=== PATIENT | male | born 1955 | race Caucasian/White ===

== ENCOUNTER 2017-02-12 16:18 | Observation (INO) | payer OTHER ==
--- NOTE | 2017-02-12 18:09 | PCM.HP ---
H&P History of Present Illness - General Date of Service: 02/12/17 Admit Problem/Dx: Admission Diagnosis/Problem Admission Diagnosis/Problem Elevated troponin I level Source of Information: Patient, Family, Old Records, Provider History Limitations: Reports: No Limitations - History of Present Illness Initial Comments - Free Text/Narative: This is a 61yo M who presents to the clinic with sob, chest palpitations profuse diaphoresis that started yesterday am around 1030am while working. He rested and the symptoms lasted for about 45minutes. He has not had symptoms since yesterday but does recall having some chest pain after the palpitations started. He denies any current chest pain or sob. He saw Juan Manuel Kern in clinic and was signed out to me when Juan Manuel left at 5pm. Onset of Symptoms: Reports: Sudden Duration of Symptoms: Reports: Minutes:, Resolved Prior to Arrival Location: Reports: Chest Severity: Moderate Associated Symptoms: Reports: Shortness of Breath, Other (diaphoresis) - Related Data Allergies/Adverse Reactions: Allergies Allergy/AdvReac Type Severity Reaction Status Date / Time No Known Allergies Allergy Verified 02/12/17 18:40 Home Medications: Home Meds Fish Oil/[place]-3 Fatty Acids [Fish Oil] 1 gm PO DAILY 02/12/17 [History] H&P Review of Systems - Review of Systems: Review Of Systems: ROS reveals no pertinent complaints other than HPI. Exam - Exam Exam: See Below - Exam General: Alert, Oriented, Cooperative HEENT: PERRLA, Conjunctiva Clear, EACs Clear, EOMI, Posterior Pharynx Clear Neck: Supple, Trachea Midline Lungs: Clear to Auscultation, Normal Respiratory Effort Cardiovascular: Regular Rate, Regular Rhythm GI/Abdominal Exam: Normal Bowel Sounds Back Exam: Normal Inspection Extremities: Normal Inspection Peripheral Pulses: 2+: Dorsalis Pedis (L), Dorsalis Pedis (R) Skin: Warm, Dry, Intact Neurological: Cranial Nerves Intact Neuro Extensive - Mental Status: Alert, Oriented x3, Normal Mood/Affect - Patient Data Lab Results Last 24 hrs: Laboratory Results - last 24 hr 02/12/17 02/12/17 Range/Units 16:34 16:34 WBC 8.3 (4.0-11.0) K/uL RBC 5.11 (4.50-6.50) M/uL Hgb 14.5 (13.0-18.0) g/dL Hct 44.6 (40.0-54.0) % MCV 87 (76-96) fL MCH 28.4 (27.0-32.0) pg MCHC 32.5 (31.0-35.0) g/dL RDW 14.7 (11.0-16.0) % Plt Count 306 (150-400) K/uL MPV 9.0 (6.0-10.0) fL Neut % (Auto) 56.5 (45.0-70.0) % Lymph % (Auto) 29.3 (20.0-40.0) % [place] % (Auto) 11.6 H (3.0-10.0) % Eos % (Auto) 2.1 (1.0-5.0) % Baso % (Auto) 0.5 (0.0-0.5) % Neut # (Auto) 4.69 (2.00-7.50) K/uL Lymph # (Auto) 2.43 (1.50-4.00) K/uL [place] # (Auto) 0.96 H (0.20-0.80) K/uL Eos # (Auto) 0.17 (0.04-0.40) K/uL Baso # (Auto) 0.04 (0.02-0.10) K/uL Sodium 140 (136-145) mmol/L Potassium 4.1 (3.5-5.1) mmol/L Chloride 102 (98-107) mmol/L Carbon Dioxide 31.9 (21.0-32.0) mmol/L Anion Gap 10.2 (5.0-15.0) mmol/L BUN 11 (8-26) mg/dL Creatinine 1.23 (0.70-1.30) mg/dL Est Cr Clr Drug Dosing TNP Estimated GFR (MDRD) > 60 (>60) MLS/MIN BUN/Creatinine Ratio 8.9 (6-25) Glucose 116 H (74-100) mg/dL Calcium 8.9 (8.5-10.1) mg/dL Total Bilirubin 0.4 (0.0-1.0) mg/dL AST 34 (15-37) U/L ALT 82 H (12-78) U/L Alkaline Phosphatase 74 (46-116) U/L Troponin I 0.064 H* (0.000-0.060) ng/mL Total Protein 7.7 (6.4-8.2) g/dL Albumin 3.7 (3.4-5.0) g/dL Globulin 4.0 (2.2-4.2) g/dL Albumin/Globulin Ratio 0.9 (0.8-2.0) Result Diagrams: 02/12/17 16:34 02/12/17 16:34 *Q Meaningful Use (ADM) - VTE *Q VTE Criteria *Q: - Stroke *Q Stroke Criteria *Q: - AMI *Q AMI Criteria *Q: - Problem List (1) Elevated troponin SNOMED Code(s): 823317966, 519513221 ICD Code: R74.8 - ABNORMAL LEVELS OF OTHER SERUM ENZYMES Status: Acute Priority: High Current Visit: Yes Problem List Initiated/Reviewed/Updated: Yes Orders Last 24hrs: Active Orders 24 hr Category Date Time Status Patient Status [ADT] Routine ADT 02/12/17 17:36 Ordered Bedrest Bathroom Privileges [RC] ASDIRECTED Care 02/12/17 17:36 Ordered Oxygen Therapy [RC] PRN Care 02/12/17 17:36 Ordered Telemetry Monitoring [Cardiac Monitoring] [RC] .As Care 02/12/17 17:40 Ordered Directed Vital Signs [RC] Q1HR Care 02/12/17 17:36 Ordered Nothing per Oral Now Diet [DIET] Diet 02/12/17 Breakfast Ordered Chest 2V [CR] Routine Exams 02/12/17 Taken TROPONIN I [CHEM] Timed Lab 02/12/17 19:30 Ordered Assessment/Plan Comment:: Patient placed on telemetry. Discussed plan of care with Dr. Mccray. Will repeat troponin in 3 hrs. Start on metoprolol 25mg Q12, Brlinita 180mg, Atorvastatin 80mg, and Aspirin 325mg given.
[2017-02-12] MEDS ORDERED: Aspirin 81 MG Tab.Chew ONE (18:11)
[2017-02-12] MEDS ORDERED: Aspirin 325 MG Tab.EC PO ONE (18:45)
[2017-02-12] MEDS ORDERED: Metoprolol Tartrate 25 MG Tab PO ONE (19:00)
[2017-02-12] MEDS ORDERED: atorvaSTATin 80 MG Tab PO ONE (20:13)
[2017-02-12] MEDS ORDERED: Enoxaparin 150 MG/1 ML Syringe SUBCUT ONE (20:15)
--- NOTE | 2017-02-12 20:41 | PCM.DCSUM1 ---
Discharge Summary - Discharge Data Discharge Date: 02/12/17 Discharge Disposition: DC/Tfer to Acute Hospital 02 Condition: Good - Discharge Diagnosis/Problem(s) (1) Elevated troponin SNOMED Code(s): 165249642, 401625358 ICD Code: R74.8 - ABNORMAL LEVELS OF OTHER SERUM ENZYMES Status: Acute Priority: High Current Visit: Yes - Patient Instructions Diet: NPO Activity: Bedrest - Discharge Plan Home Medications: Home Meds Fish Oil/[place]-3 Fatty Acids [Fish Oil] 1 gm PO DAILY 02/12/17 [History] - Discharge Summary/Plan Comment DC Time >30 min.: No Discharge Summary/Plan Comment: Discussed transfer plan. Dr. Mccray consulted on management. We will give 1mg/ kg lovemox at this time and then transfer. Patient to go to Cardiac floor and likely proceed for cath in am. Discussed plan of care with and accepting provider Dr. Sloan hospitalist. Patient remains pain free since yesterday and denies any shortness of breath or diaphoresis. Patient agrees with plan of care and transfer. - Patient Data Vitals - Most Recent: Last Vital Signs Temp 35.9 C 02/12/17 17:45 Pulse 65 02/12/17 19:50 Resp 16 02/12/17 19:43 BP 130/94 H 02/12/17 19:50 Pulse Ox 98 02/12/17 19:50 Lab Results - Last 24 hrs: Laboratory Results - last 24 hr 02/12/17 02/12/17 02/12/17 Range/Units 16:34 16:34 19:30 WBC 8.3 (4.0-11.0) K/uL RBC 5.11 (4.50-6.50) M/uL Hgb 14.5 (13.0-18.0) g/dL Hct 44.6 (40.0-54.0) % MCV 87 (76-96) fL MCH 28.4 (27.0-32.0) pg MCHC 32.5 (31.0-35.0) g/dL RDW 14.7 (11.0-16.0) % Plt Count 306 (150-400) K/uL MPV 9.0 (6.0-10.0) fL Neut % (Auto) 56.5 (45.0-70.0) % Lymph % (Auto) 29.3 (20.0-40.0) % [place] % (Auto) 11.6 H (3.0-10.0) % Eos % (Auto) 2.1 (1.0-5.0) % Baso % (Auto) 0.5 (0.0-0.5) % Neut # (Auto) 4.69 (2.00-7.50) K/uL Lymph # (Auto) 2.43 (1.50-4.00) K/uL [place] # (Auto) 0.96 H (0.20-0.80) K/uL Eos # (Auto) 0.17 (0.04-0.40) K/uL Baso # (Auto) 0.04 (0.02-0.10) K/uL Sodium 140 (136-145) mmol/L Potassium 4.1 (3.5-5.1) mmol/L Chloride 102 (98-107) mmol/L Carbon Dioxide 31.9 (21.0-32.0) mmol/L Anion Gap 10.2 (5.0-15.0) mmol/L BUN 11 (8-26) mg/dL Creatinine 1.23 (0.70-1.30) mg/dL Est Cr Clr Drug Dosing TNP Estimated GFR (MDRD) > 60 (>60) MLS/MIN BUN/Creatinine Ratio 8.9 (6-25) Glucose 116 H (74-100) mg/dL Calcium 8.9 (8.5-10.1) mg/dL Total Bilirubin 0.4 (0.0-1.0) mg/dL AST 34 (15-37) U/L ALT 82 H (12-78) U/L Alkaline Phosphatase 74 (46-116) U/L Troponin I 0.064 H* 0.070 H* (0.000-0.060) ng/mL Total Protein 7.7 (6.4-8.2) g/dL Albumin 3.7 (3.4-5.0) g/dL Globulin 4.0 (2.2-4.2) g/dL Albumin/Globulin Ratio 0.9 (0.8-2.0) Med Orders - Current: Current Medications Metoprolol Tartrate (Lopressor) 25 mg PO Q12HR ALEA Discontinued Medications Aspirin (Ecotrin) 325 mg PO ONETIME ONE Stop: 02/12/17 18:46 Last Admin: 02/12/17 18:49 Dose: 324 mg Aspirin (Aspirin) Confirm Administered Dose 324 mg .ROUTE .STK-MED ONE Stop: 02/12/17 18:12 Last Admin: 02/12/17 19:23 Dose: Not Given Atorvastatin Calcium (Lipitor) 80 mg PO ONETIME ONE Stop: 02/12/17 20:14 Last Admin: 02/12/17 20:30 Dose: 80 mg Enoxaparin Sodium (Lovenox) 130 mg SUBCUT ONETIME ONE Stop: 02/12/17 20:16 Last Admin: 02/12/17 20:30 Dose: 130 mg Metoprolol Tartrate (Lopressor) 25 mg PO ONETIME ONE Stop: 02/12/17 19:01 Last Admin: 02/12/17 19:09 Dose: 25 mg *Q Meaningful Use (DIS) - VTE *Q VTE Criteria *Q: - Stroke *Q Stroke Criteria *Q: - AMI *Q AMI Criteria *Q:
[2017-02-13] MEDS ORDERED: Metoprolol Tartrate 25 MG Tab PO SCH (08:00)
--- NOTE | 2017-02-15 17:30 | CR ---
DATE OF SERVICE: 02/12/17 CLINICAL DATA: Shortness of breath PA AND LATERAL CHEST: No priors. The heart size is normal. There are linear densities in both lower lungs consistent with linear atelectasis or fibrosis. There is focal eventration of the right hemidiaphragm. The lungs are otherwise clear. No pneumothorax. No pleural effusions. No areas of consolidation. There is mild degenerative disc disease at multiple levels in the thoracic spine. [id number] MTDD
== END 2017-02-12 20:40 ==
LOC: LB.CLINIC 16:18 → LB.MS 17:28 → UNDOADMOB 17:28 → LB.MS 17:36 → UNDODISOB 20:40
PROVIDERS: ADMIT Family Medicine; ATTEND Family Medicine
DX: R74.8 Abnormal levels of other serum enzymes (principal); Z79.899 Other long term (current) drug therapy
CPT/HCPCS: 36415; 71020; 80053; 84484; 85025; 93005; 96372; A0425; A0429; A9270; J1650; G0378; G0379

== ENCOUNTER 2019-03-04 19:04 | Observation (INO) | payer OTHER ==
[2019-03-04] MEDS ORDERED: Sodium Chloride 0.9% 1,000 ML IV SCH (20:00)
[2019-03-04] MEDS ORDERED: Metoprolol Tartrate 25 MG Tab PO SCH (20:30)
[2019-03-05] MEDS ORDERED: Ondansetron 4 MG/2 ML SDV IVPUSH ONE (04:34)
[2019-03-05] MEDS ORDERED: Ondansetron 4 MG/2 ML SDV ONE (04:37)
[2019-03-05] MEDS ORDERED: D5 1/2 NS w/ 20 mEq/L KCl 1,000 ML IV SCH (06:00)
[2019-03-05] MEDS ORDERED: D5 1/2 NS w/ 20 mEq/L KCl 1,000 ML ONE (06:05)
[2019-03-05] MEDS ORDERED: Metoprolol Tartrate 25 MG Tab**OWN MED PO SCH (08:00)
[2019-03-05] MEDS ORDERED: Aspirin 81 MG Tab.EC**OWN MED PO SCH (08:00)
[2019-03-05] MEDS ORDERED: LISINOPRIL 2.5 MG PO SCH (08:00)
--- NOTE | 2019-03-05 08:44 | CR ---
DATE OF SERVICE: 03/04/19 CLINICAL DATA: cardiac AP CHEST: The heart size is normal. The lungs are clear. No pneumothorax. No pleural effusions. No evidence of acute intrathoracic disease. [id number] [facility]
--- NOTE | 2019-03-05 09:54 | ER ---
REASON FOR EMERGENCY ROOM VISIT: Shortness of breath and chest pain. HISTORY OF PRESENT ILLNESS: This 63-year-old gentleman was brought into the emergency room by his for an episode of dyspnea, diaphoresis, and mild chest pain. This evening while watching a football game, he was eating dinner when he had to bend over and when he stood up he experienced shortness of breath followed by diaphoresis, and he sat down and subsequently experienced some mild low substernal chest pain. There was no radiation to his neck, to his back, or down his arm. He had no nausea but his symptoms of diaphoresis and shortness of breath continued. He was therefore brought into the emergency room by his . It is noteworthy to mention that he had a similar episode in [place] two years ago when he was unloading a truck, and he developed identical symptoms. He leaned against the truck for several minutes, and his symptoms resolved on their own. He subsequently drove home here to [place] and saw his provider, Dr. Cm. He had a troponin level drawn at that time, and it was elevated. He was therefore sent by ambulance immediately to [place], where workup which included what sounds like a CT coronary angiography showed that he had clear vessels. It sounds from what he is able to relate to me at the time that he had, they felt he may have had an episode of atrial fibrillation that spontaneously resolved. He was never on any anticoagulation. He has not had any symptoms like this since the episode in [place] 2 years ago. PAST MEDICAL HISTORY: 1. Two years ago the above-mentioned event. 2. Hypertension. 3. Cholecystectomy. 4. Colonoscopy. 5. Foot surgery. 6. Type II DM MEDICATIONS: Include: 1. Lisinopril 2.5 mg p.o. daily. 2. One baby aspirin daily. 3. Atorvastatin 80 mg p.o. daily. 4. Metoprolol tartrate 12.5 mg p.o. b.i.d. ALLERGIES: NONE TO MEDICATIONS. FAMILY HISTORY: His father from myocardial infarction at 56. His mother from brain tumor at 75. He has an older brother who received a kidney transplant and is hypertensive. He has two sisters, both of whom have hypertension but no history of coronary disease or cardiac disease. He has 2 children, but none of them have any history of cardiac disease. REVIEW OF SYSTEMS: Pertinent positives and negatives as listed in the HPI. PHYSICAL EXAMINATION: GENERAL: On arrival, he was somewhat diaphoretic and somewhat anxious looking. VITAL SIGNS: His heart rate was 196. He was in some sort of a supraventricular tachycardia. His blood pressure was 89/69, O2 sats 96% on room air. HEENT: Oropharynx is normal. NECK: No JVD was noted. No bruits. CHEST: Clear to auscultation. No rales, wheezes or rhonchi. CARDIAC EXAM: Tachycardia. No murmur or rub. ABDOMEN: Obese, soft, and nontender. No hepatosplenomegaly. EXTREMITIES: Normal pulses. No edema. NEUROLOGIC: He moves all 4 extremities well and to command. FURTHER EMERGENCY ROOM COURSE: He was hooked up to the monitor, and a 12-lead EKG demonstrated atrial fibrillation with rapid ventricular response. A BMP was obtained. His electrolytes were normal. He did have a creatinine of 1.56 with a BUN of 19, and an estimated GFR of 45. His troponin 1 was normal at less than 0.017. We were preparing to sedate the patient and to cardiovert him because of his chest pain and hypotension, however, he spontaneously converted to a normal sinus rhythm, and his blood pressure responded nicely with the blood pressure between 100 and 110 systolic. His heart rate remained in the 80s to low 90s. We had him on oxygen at 2 L/minute per nasal cannula. He was monitored for another hour in the emergency department. At this time, we repeated his 12- lead EKG which showed normal sinus rhythm and no evidence of ischemic changes. We decided at this time that we would admit him, double his dose of metoprolol from 12.5 mg p.o. b.i.d to 25 mg po bid. and keep him on the remainder of his medications. We will admit him and monitor him. If he remains stable, we will discharge him on the above-mentioned medications with the above- mentioned changes made to his metoprolol dose. He does have a cardiology appointment scheduled for 03/16. It sounds to me like this is a similar episode to that which he experienced two years ago which I suspect resolved and converted spontaneously. Should he develop any signs of recurrent difficulties or need cardioversion or if there is any question, he may well need to be transferred to another facility most likely [place]. The patient and his understand this. If any questions or concerns arise, I will consult cardiology in [place]. ADMISSION DIAGNOSIS: Acute atrial fibrillation, resolved. NANO/JOO /[id number] MTDD
[2019-03-05] MEDS ORDERED: ATORVASTATIN 80 MG PO SCH (20:00)
--- NOTE | 2019-03-06 08:00 | DISCH ---
DATE OF TRANSFER: 03/05/2019. ADMISSION DIAGNOSIS: Acute atrial fibrillation. DISCHARGE DIAGNOSES: 1. Acute atrial fibrillation, resolved. 2. Elevated troponin 1, possible myocardial ischemia. HOSPITAL COURSE: This is a 63-year-old man with hypertension and type 2 diabetes, who was seen in the emergency room last night following an episode of diaphoresis, shortness of breath, and chest pain. He came in with an atrial fibrillation with a rapid ventricular response, running in the 180s to 190s, as well as hypotension. In the course of his emergency room evaluation and preparation for cardioversion because of his instability, he spontaneously converted to normal sinus rhythm. His symptoms immediately resolved. His troponin was normal and his 12-lead EKG following his spontaneous conversion showed no signs of ischemia. MEDICATIONS: On admission included baby aspirin 1 p.o. daily, atorvastatin 80 mg p.o. at bedtime, lisinopril 2.5 mg p.o. daily, metoprolol 12.5 mg p.o. q.12 hours. ALLERGIES: NONE TO MEDICATIONS. LABORATORY DATA: On admission showed that his hemoglobin was normal, but his WBCs went from 14.5 to 11.5 between last night and this morning. His electrolytes were normal. However, his serum creatinine was elevated at 1.56 and came down to 1.32 overnight. His troponin initially was less than 0.017. However, at midnight it has elevated to 0.109 and by this morning it had decreased again to 0.084. Serial EKGs throughout the night continued to show normal sinus rhythm with no signs of acute change. HOSPITAL COURSE: He was admitted and placed on a monitor. Hemodynamically, his vital signs remained stable. He was not hypotensive or tachycardic. He remained afebrile. In the early hours of the morning, he did develop some nausea and vomited 3 times and had several episodes of diarrhea. Following 1 dose of Zofran, his GI symptoms spontaneously resolved. It should be noted that the patient's family including his , daughter, son-in-law, and grandchild have all had gastroenteritis with a similar picture. PHYSICAL EXAMINATION: GENERAL: This morning, he is alert, in no acute distress. CHEST: Clear to auscultation. CARDIAC: Regular rate without murmur. ABDOMEN: Soft and nontender. I spoke of the patient's presentation and his history with the pump rebuilder astronomy professor, Dr. Mccray in [place], who actually had seen this patient when he came in 2 years ago, so he was somewhat familiar with this man from the past. Additionally, I spoke to the hospitalist at the same time, Dr. Pérez. It was Dr. Mccray's opinion that the options included to go ahead and discharge him and have him follow up with his pump rebuilder as scheduled versus to transfer him so that he can have an echocardiogram, and a decision can be made whether or not he should be placed on a medication that would be better at obviating recurrent episodes of acute atrial fibrillation that can become unstable. These options would include either sotalol or flecainide and an echocardiogram is of vital importance in order to make that determination. If he does have to be placed on sotalol, he will probably need to be monitored for a couple of additional days to assess for any changes in QT interval, in order to be certain that the drug can be safely taken on a daily basis. They agreed to accept him in transfer, and we will be sending him by [facility] because of the episode last night. He is stable at the time of transfer. He and his are both aware of the risks incurred in transfer, including cardiac events or even motor vehicle accident. They understand and agree with this plan. All questions were answered. HAYLIE /[id number]
== END 2019-03-05 10:45 ==
LOC: LB.ED 19:04 → LB.MS 20:30
PROVIDERS: ADMIT Surgery; ATTEND Surgery
DX: I48.0 Paroxysmal atrial fibrillation (principal); R79.89 Other specified abnormal findings of blood chemistry; I95.9 Hypotension, unspecified; I10 Essential (primary) hypertension; E11.9 Type 2 diabetes mellitus without complications; Z79.82 Long term (current) use of aspirin; Z79.899 Other long term (current) drug therapy
CPT/HCPCS: 36415; 71045; 80048; 80053; 84484; 85025; 93005; A0425; A0429; A9270; J2405; J3480; J7030; 96360; 99285-25

== ENCOUNTER 2024-05-26 15:25 | Emergency (ER) | payer BC ==
[2024-05-26] MEDS: Aspirin 81 MG Tab.Chew PO ONE (15:44)
[2024-05-26] MEDS: Nitroglycerin 0.4 MG Tab.SL SL ONE (15:50)
[2024-05-26] MEDS ORDERED: Naloxone 2 MG/2 ML Syringe IVPUSH PRN (15:59)
[2024-05-26] MEDS: HYDROmorphone 1 MG/ML Syringe IVPUSH ONE (16:02)
[2024-05-26 16:06] LABS: BASOPHILS ABSOLUTE AUTO 0.02 K/uL (0.02-0.10); BASOPHILS PERCENT AUTO 0.3 % (0.0-0.5); EOSINOPHILS ABSOLUTE AUTO 0.15 K/uL (0.04-0.40); EOSINOPHILS PERCENT AUTO 1.9 % (1.0-5.0); HEMOGLOBIN 14.3 g/dL (13.0-18.0); LYMPHOCYTES ABSOLUTE AUTO 1.85 K/uL (1.50-4.00); LYMPHOCYTES PERCENT AUTO 23.5 % (20.0-40.0); MEAN CORPUSCULAR HEMOGLOBIN 28.9 pg (27.0-32.0); MEAN CORPUSCULAR HGB CONC 32.5 g/dL (31.0-35.0); MEAN CORPUSCULAR VOLUME 89 fL (76-96); MEAN PLATELET VOLUME 8.9 fL (6.0-10.0); MONOCYTES ABSOLUTE AUTO 0.97 K/uL (0.20-0.80); MONOCYTES PERCENT AUTO 12.3 % (3.0-10.0); NEUTROPHILS ABSOLUTE AUTO 4.88 K/uL (2.00-7.50); PLATELET COUNT,PLT 246 K/uL (150-400); RED BLOOD CELL COUNT 4.95 M/uL (4.50-6.50); RED CELL DISTRIBUTION WIDTH 13.8 % (11.0-16.0); WHITE BLOOD CELL COUNT,WBC 7.9 K/uL (4.0-11.0)
[2024-05-26] MEDS: HYDROmorphone 2 MG/ML Syringe ONE (16:08)
[2024-05-26 16:30] LABS: PTT,PARTIAL THROMBOPLSTIN TIME 27.7 SECONDS (24.4-33.2)
[2024-05-26 16:31] LABS: PROTHROMBIN TIME 10.4 sec (9.0-11.5)
[2024-05-26 16:32] LABS: A/G RATIO 0.9 (0.8-2.0); ALBUMIN 3.3 g/dL (3.4-5.0); ANION GAP 7.7 mmol/L (5.0-15.0); BILIRUBIN TOTAL 0.9 mg/dL (0.0-1.0); BUN/CREATININE RATIO 8.9 (6-25); CALCIUM 8.4 mg/dL (8.5-10.1); CARBON DIOXIDE,CO2 33.6 mmol/L (21.0-32.0); CREATININE 1.24 mg/dL (0.70-1.30); EST CRCL DRUG DOSING (CG) 56.69 mL/min; POTASSIUM,K 4.3 mmol/L (3.5-5.1); PROTEIN TOTAL,TP 6.8 g/dL (6.4-8.2)
[2024-05-26 16:43] LABS: LIPASE 65 U/L (16-77); MAGNESIUM 1.9 mg/dL (1.8-2.4); PRO B-TYPE NATRIUR PEPT,BNPPRO 54 pg/mL (0-125); TROPONIN I HIGH SENSITIVITY 5.5 pg/ml (<=60.4)
[2024-05-26 16:44] LABS: C-REACTIVE PROTEIN < 5.0 mg/L (<5.0)
[2024-05-26] MEDS: GI Cocktail Oral Solution 30 ML PO ONE (17:05)
[2024-05-26] MEDS ORDERED: Sodium Chloride 0.9% 10 ML Syringe FLUSH PRN (17:34)
== END 2024-05-26 17:15 | disposition home or self-care (01) ==
LOC: LB.ED 15:25
DX: K29.00 Acute gastritis without bleeding (principal); I48.91 Unspecified atrial fibrillation; I11.0 Hypertensive heart disease with heart failure; I50.9 Heart failure, unspecified; E78.00 Pure hypercholesterolemia, unspecified; Z90.49 Acquired absence of other specified parts of digestive tract; Z79.82 Long term (current) use of aspirin; Z79.01 Long term (current) use of anticoagulants; Z79.899 Other long term (current) drug therapy
CPT/HCPCS: 36415; 71250; 74176; 80053; 83690; 83735; 83880; 84484; 85025; 85379; 85610; 85730; 86140; 93010; 96374; 99284; 99285-25; A9270-GY; J1171